=== PATIENT | female | born 1930 | race Caucasian/White ===

== ENCOUNTER 2017-04-17 20:06 | Observation (INO) ==
[2017-04-17 21:04] LABS: Basophils % 0.5 %; Eosinophils # 0.1 K/mcL (0.0-0.6); Eosinophils % 1.4 %; Hemoglobin 13.1 g/dL (11.5-15.4); Lymphocytes % 22.6 %; Mean Corpuscular HGB Conc 32.8 g/dL (31.6-35.5); Mean Corpuscular Hemoglobin 31.3 pg (28.0-33.3); Mean Corpuscular Volume 95.7 fL (83.0-100.0); Mean Platelet Volume 10.7 fL (9.4-12.4); Monocytes # 0.4 K/mcL (0.0-1.3); Monocytes % 9.9 %; Neutrophils # 2.8 K/mcL (1.6-8.9); Platelet Count 173 K/mcL (140-400); Red Blood Count 4.18 M/mcL (3.82-4.97); Red Cell Distribution Width 13.8 % (11.5-14.5); Segmented Neutrophils % 65.6 %
[2017-04-17 21:07] LABS: INR 1.5; Prothrombin Time 15.9 Seconds (9.4-12.1)
[2017-04-17 21:19] LABS: Alanine Aminotransferase 11 Units/L (0-55); Albumin 3.8 g/dL (3.5-5.0); Albumin/Globulin Ratio 1.2 (1.1-2.2); Alkaline Phosphatase 82 Units/L (38-126); Aspartate Amino Transferase 19 Units/L (5-34); BUN/Creatinine Ratio 17 (6-26); Bilirubin,Total 0.5 mg/dL (0.2-1.2); Blood Urea Nitrogen 17 mg/dL (7-20); Calcium 9.5 mg/dL (8.6-10.8); Carbon Dioxide 27 mEq/L (19-29); Chloride 109 mEq/L (98-109); Globulin 3.1 g/dL (2.4-3.5); Glucose 93 mg/dL (70-99); Osmolality,Calculated 299 (280-300); Potassium 4.1 mEq/L (3.5-4.5); Sodium 144 mEq/L (136-145); Total Protein 6.9 g/dL (6.0-8.3); eGFR For African Americans > 60 (> 60); eGFR For Non-African Americans 52 (> 60)
--- NOTE | 2017-04-17 21:25 | Emergency Department Note ---
Disposition Clinical Impression: Subconjunctival hemorrhage of right eye, Elevated systolic blood pressure reading with diagnosis of hypertension Disposition: Admitted As Inpatient Condition: Fair Time of Disposition: 00:43 General Adult HPI - General Chief complaint: ED Dizziness Stated complaint: dizziness, sent by Dr. Padilla concern for aneurysm Time Seen by Provider: 04/17/17 20:33 Source: patient Mode of arrival: ambulatory Limitations: no limitations Nursing Notes Reviewed: Yes Vital Signs Reviewed: Yes - History of Present Illness HPI Narrative: Mrs. Butts, 86-year-old female, presents from her title attorney, Dr. Padilla, with concern of possible aneurysm. Patient had some conjunctival hemorrhage onset 1 week ago and persistent. At 08:30 this morning, patient had an episode of vertigo described as the room spinning. Onset when she bent forward at the waist. Duration of appx 5 minutes, resolved with rest, and has not recurred. PMH: HTN, HLD, A. Fib - on Eliquis, hx TIA. PSH: 4 vessel CABG. Rt cataract replacement. ROS: POS: right scleral redness, vertigo, right eye pain NEG: Headache, nausea, vomiting, confusion, chest pains, palpitations, back pains, any unilateral changes to sensation or strength. Pain Scale: 5 - Related Data Home Medications Medication Instructions Recorded Confirmed Apixaban [Eliquis] 5 mg PO BID 01/28/16 04/18/17 Cholecalciferol (Vitamin D3) 5,000 unit PO QAM 01/28/16 04/18/17 [Vitamin D3] Furosemide [Lasix] 40 mg PO BID PRN 01/28/16 04/18/17 Magnesium Gluconate 27.5 mg PO BID 01/28/16 04/18/17 Metoprolol [Lopressor] 25 mg PO BID 01/28/16 04/18/17 Ranitidine HCl [Zantac] 300 mg PO QAM 01/28/16 04/18/17 Sertraline [Zoloft] 50 mg PO QPM 01/28/16 04/18/17 Simvastatin [Zocor] 10 mg PO QPM 01/28/16 04/18/17 Vitamin B Complex 1 each PO BID 01/28/16 04/18/17 OxyCODONE/APAP 5/325 [Percocet 1 each PO Q6HR PRN 04/18/17 04/18/17 5/325] Allergies Allergy/AdvReac Type Severity Reaction Status Date / Time adhesive Allergy Rash Verified 09/08/16 13:22 codeine Allergy Difficulty Verified 04/08/16 21:51 Breathing IVP DYE AdvReac Hives Uncoded 07/05/15 23:27 All systems ED: reviewed and negative except as stated. Past Medical History - Past Medical History Medical history: Reports: atrial fibrillation, coronary artery disease, hypertension Surgical history: Reports: appendectomy, cholecystectomy, coronary bypass (CABG) , hysterectomy Psychiatric history: Reports: no psych history - Social History Smoking Status: Never smoker Smokeless Tobacco Status: No Alcohol use: Reports: none Drug use: Reports: none Physical Exam Vital Signs Reviewed General: Patient is alert, oriented, and in no acute distress. HEENT: No facial asymmetry. Head is normocephalic and atraumatic. EOMI. cyst- like lesion visible at appx 8-10 o'clock to right pupil. Right-sided subcutaneous conjunctival hemorrhage. Oral mucosa moist. Cardiovascular: Heart regular rate and rhythm without clicks, rubs, gallops, or murmurs. No JVD. PMI nondisplaced. Respiratory: Symmetric chest rise with good respiratory effort. Bilateral breath sounds are clear without wheezing, crackles, or rhonchi. Abdomen: Bowel sounds present normoactive x-4 quadrants. Abdomen is soft, nondistended, and nontender. No organomegaly noted. Musculoskeletal: Muscle strength 5/5 and symmetric bilaterally in upper extremities. Neuro: Cranial nerves II through XII without deficit. Sensation light touch intact. Psych: Patient's affect is appropriate for situation. *Unable to perform pupillary relaxing reaction to light or visual acuity secondary to pupillary dilation from her earlier ophthalmology appointment. - General Limitations: no limitations General appearance: alert, in no apparent distress Course Course Narrative: I spoke with her title attorney, Dr. Padilla. He is concerned as the patient has a pulsatile cyst at 9o'clock to her right pupil along with the subconjunctival hemorrhage and near syncope this morning. His intent is to rule out larger neurologic causes prior to his continued workup. After dilation , on his slit lamp exam, he did not visualize a neoplasm in the eye and no no retinal hemorrhages. Fracture dilation, her pupils were equally round and reactive to light. She does have a history of cataract removal right eye and has an existing cataract in the left. He has spoken with an ocular oncologist with [facility], Dr. Dhiraj Rizzo, regarding the unusual finding the pulsatile cyst. His plan is to have patient follow up with Dr. Restrepo this coming week for evaluation of the cyst. CT head without contrast shows no acute abnormalities. Cannot perform CT angiogram head and neck as patient is allergic to IV contrast. Additionally, cannot perform MRI with contrast for same reason. Discussed this with the hospitalist and he agrees to admission for MRA with contrast using the IV contrast allergy protocol defined by radiology. Throughout her stay, patient has remained asymptomatic and comfortable. She is neurologically intact. As such, no clinical indication for stat MRI with contrast. Will admit patient and perform MRI on inpatient basis. Vital Signs Temperature 98.1 F 04/17/17 20:09 Pulse Rate 95 04/17/17 20:09 Respiratory Rate 18 04/17/17 20:09 Blood Pressure 176/104 04/17/17 20:09 O2 Sat by Pulse Oximetry 98 04/17/17 20:09 Temperature 98.0 F 04/18/17 00:23 Pulse Rate 84 04/18/17 00:23 Respiratory Rate 16 04/18/17 00:23 Blood Pressure 151/86 04/18/17 00:23 O2 Sat by Pulse Oximetry 98 04/18/17 00:23 Oxygen Delivery Oxygen Delivery Room Air Medical Decision Making - Medical Records Medical records reviewed: Yes I reviewed the patient's medical records. - Lab Data Lab results reviewed: Yes I reviewed the patient's lab results. Result diagrams: 04/17/17 20:54 04/17/17 20:54 Lab Results 04/17/17 04/17/17 04/17/17 Range/Units 20:54 20:54 20:54 WBC 4.3 (4.3-11.1) K/mcL RBC 4.18 (3.82-4.97) M/mcL Hgb 13.1 (11.5-15.4) g/dL Hct 40.0 (35.3-44.9) % MCV 95.7 (83.0-100.0) fL MCH 31.3 (28.0-33.3) pg MCHC 32.8 (31.6-35.5) g/dL RDW 13.8 (11.5-14.5) % Plt Count 173 (140-400) K/mcL MPV 10.7 (9.4-12.4) fL Immature Gran % 0.0 (0-4) % Seg Neutrophils % 65.6 % Lymphocytes % 22.6 % Monocytes % 9.9 % Eosinophils % 1.4 % Basophils % 0.5 % Neutrophils # 2.8 (1.6-8.9) K/mcL Lymphocytes # 1.0 (0.6-4.6) K/mcL Monocytes # 0.4 (0.0-1.3) K/mcL Eosinophils # 0.1 (0.0-0.6) K/mcL Basophils # 0.0 (0.0-0.2) K/mcL PT 15.9 H (9.4-12.1) Seconds INR 1.5 Sodium 144 (136-145) mEq/L Potassium 4.1 (3.5-4.5) mEq/L Chloride 109 (98-109) mEq/L Carbon Dioxide 27 (19-29) mEq/L BUN 17 (7-20) mg/dL Creatinine 1.02 (0.57-1.11) mg/dL Est GFR ( Amer) > 60 (> 60) Est GFR (Non-Af Amer) 52 L (> 60) BUN/Creatinine Ratio 17 (6-26) Glucose 93 (70-99) mg/dL Calculated Osmolality 299 (280-300) Calcium 9.5 (8.6-10.8) mg/dL Total Bilirubin 0.5 (0.2-1.2) mg/dL AST 19 (5-34) Units/L ALT 11 (0-55) Units/L Alkaline Phosphatase 82 (38-126) Units/L Serum Total Protein 6.9 (6.0-8.3) g/dL Albumin 3.8 (3.5-5.0) g/dL Globulin 3.1 (2.4-3.5) g/dL Albumin/Globulin Ratio 1.2 (1.1-2.2) - Radiology Data Radiology results reviewed: Yes I reviewed the patient's radiology results. Head CT 04/17/17 20:47 IMPRESSION: No acute intracranial abnormality. D/ / Remington Flores MD / Remington Flores MD Interpreting Provider: Remignton Flores MD - EKG Data EKG #1 EKG attestation: Yes I reviewed and interpreted this EKG. EKG results narrative: EKG dated 17 April 2017 at 21:42 interpreted as atrial fibrillation with rate of 90. Normal axis. Non-specific STT changes. Compared to previous dated 4015 also showing A. fib. No acute ischemic changes comparison. Attestation Statement - Attestation Attestation: I personally interviewed and examined this patient and my medical decision- making was reviewed with the ED Resident Physician, Dr. Marrero I agree with the documented findings, disposition and treatment plan as described except to the extent set forth below. Patient is a 86-year-old white female who presents to the emergency parents today sent by her title attorney with concerns for an abnormal exam of her right eye. Patient was at home at 9 AM this morning and after bending over and developed an acute onset of right eye pain, blurred vision, acute intense vertigo with the room spinning type sensation and nausea. Symptoms lasted for 45 minutes to an hour and then spontaneously resolved. Patient was concerned with the eye pain and blurred vision and so she scheduled an appointment with her title attorney. Patient was sent to the ED from her title attorney office with concerns for an abnormal finding on her eye exam that he was concerned represented a possible aneurysm. We contacted him by phone and he explained that he saw what looked like a small pulsatile cyst on her intraocular exam that concerned him for possible aneurysm. He should arrives asymptomatic with no vertigo, no focal neurologic deficits, no visual changes and no eye pain currently. I agree with the patient's physical exam findings. Patient's symptoms were concerning for possible cerebellar TIA like symptoms versus an acute intraocular issue. We did obtain baseline labs, EKG chest x- ray as well as a noncontrast head CT to start. Patient's noncontrast was unremarkable. Due to allergy to IV contrast dye we held off on CTA of the head and neck and felt MRI would be her best imaging test. Patient remained asymptomatic with a stable neurologic exam over time. At this time we discussed the case with the hospitalist who accepted the patient for admission and further evaluation and management of symptoms.
[2017-04-18] MEDS ORDERED: Naloxone 0.4 MG/ML INJ IVP PRN (01:15)
[2017-04-18] MEDS ORDERED: Acetaminophen 325 MG TABLET PO PRN (01:15)
[2017-04-18] MEDS ORDERED: Ondansetron 4 MG/2 ML VIAL IVP PRN (01:15)
[2017-04-18] MEDS ORDERED: *HR* OxyCODONE/APAP 5/325 TABLET PO PRN (01:33)
--- NOTE | 2017-04-18 01:41 | Internal Med History&Physical ---
Date of Encounter: 04/18/17 Time of Encounter: 01:38 Assessment and Plan (1) Subconjunctival hemorrhage of right eye Current visit: Yes Status: Chronic Patient cousins with subconjunctival hemorrhage of the right eye that has been present for 3 weeks and was sent to the emergency room for obtaining a CT scan with contrast to rule out any aneurysm given pulsating lesion seen in the right eye at 9 o'clock position by patient financial services specialist. Patient has been placed under observation. We will obtain an MR angiogram without contrast to obviate the need for intravenous contrast and prednisone in this 86-year-old female. If MRI does not reveal the necessary information, patient will need to be premedicated with steroids and Benadryl and received CT angiogram of the head. (2) CAD (coronary artery disease) Current visit: Yes Status: Chronic Stable. Continue home medications. Qualifiers: Coronary Disease-Associated Artery/Lesion type: [place] artery [place] vs. transplanted heart: [place] heart Associated angina: without angina Qualified Code(s): I25.10 - Atherosclerotic heart disease of [place] coronary artery without angina pectoris (3) HTN (hypertension) Current visit: Yes Status: Chronic Controlled. Continue home medications. Qualifiers: Hypertension type: essential hypertension Qualified Code(s): I10 - Essential (primary) hypertension (4) Permanent atrial fibrillation Current visit: Yes Status: Chronic Rate controlled. Continue home medications. Hold anticoagulation due to her subconjunctival hemorrhage. Internal Medicine - H&P: HPI Chief complaint: Right eye redness Admitted From: Emergency Dept Plans for Post Hospital Care: Home History of present illness: Ms. Butts is a 86 year old female with a history of coronary artery disease status post CABG who presented to the emergency department after she was sent here by her patient financial services specialist. Patient states that she was clearing her trash this morning when she bent down and started experiencing sudden onset vertigo that lasted for 4-5 minutes. The vertigo resolved spontaneously. It was not associated with nausea, vomiting, palpitations or feeling lightheaded. The patient does report occasional intermittent palpitations. She denies any chest pain, shortness of breath, abdominal pain, diarrhea or consultation. She states that 3 weeks ago, she noticed redness in the right eye. She states that this has been happening on and off over the past year and has happened 6 times so far. She states that it initially started resolving over the next couple of days but then worsened again. Hence, the patient went to see her of the [place] today. The patient financial services specialist noted that there was a pulsating mass in the 9 o'clock position of the right eye. Hence, the patient was sent to the emergency department to get a CT scan with contrast to be evaluated for possible aneurysm. However, the patient has allergy to iodine but the patient does not remove but exact allergy. The patient is also confused whether she is allergic to iodine contrast or if she is allergic to MRI contrast. Hence, she has been placed to the hospital to be premedicated for CT scan with contrast. The patient states that she underwent left heart catheter in 2008 at which time she did receive in contrast but she is not sure if she had a reaction at the time. The patient reports chronic leg swelling. She denies any recent weight changes or changes in her appetite. She denies any headaches. She denies any recent changes in her vision. Past Med Surg Social Fam HX - Past Medical History Attestation: Yes The following information was validated with the patient. Source: patient Medical history: atrial fibrillation, coronary artery disease, hypertension Psychiatric history: no psych history - Past Surgical History Surgical History: appendectomy, cholecystectomy, coronary bypass (CABG), hysterectomy - Social History Smoking Status: Never smoker Smokeless Tobacco Status: No Alcohol use: none Drug use: none Current living situation: Home, With Family Activity Level: Independent ambulation Recent Out of Country Travel Within the Last 8 Weeks: No Exposure or Possible Exposure to Illness During Travel: No - Family History Father Family Member Ethnicity: Non- Living Status: Hx Family Cardiac Disorders: Yes (heart disease) Internal Medicine - H&P: Meds Apixaban [Eliquis] 5 mg PO BID 01/28/16 [History] Cholecalciferol (Vitamin D3) [Vitamin D3] 5,000 unit PO QAM 01/28/16 [History] Furosemide [Lasix] 40 mg PO BID PRN 01/28/16 [History] Magnesium Gluconate 27.5 mg PO BID 01/28/16 [History] Metoprolol [Lopressor] 25 mg PO BID 01/28/16 [History] Ranitidine HCl [Zantac] 300 mg PO QAM 01/28/16 [History] Sertraline [Zoloft] 50 mg PO QPM 01/28/16 [History] Simvastatin [Zocor] 10 mg PO QPM 01/28/16 [History] Vitamin B Complex 1 each PO BID 01/28/16 [History] OxyCODONE/APAP 5/325 [Percocet 5/325] 1 each PO Q6HR PRN 04/18/17 [History] Allergies adhesive Allergy (Verified 09/08/16 13:22) Rash codeine Allergy (Verified 04/08/16 21:51) Difficulty Breathing IVP DYE Adverse Reaction (Uncoded 07/05/15 23:27) Hives All Systems PM: A 10-system review of systems was performed and is negative for pertinent findings except as documented above in the HPI. Review of systems: 10 systems have been reviewed and are negative except as mentioned in the history of present illness - Constitutional Vitals: Temp Pulse Resp BP Pulse Ox 98.0 F 84 16 151/86 98 04/18/17 00:23 04/18/17 00:23 04/18/17 00:23 04/18/17 00:23 04/18/17 00:23 Exam: Gen.: Lying in bed. No acute distress. Eyes: Pupils equal, round and reactive to light. Extraocular muscles intact. Subconjunctival hemorrhage on the medial and lateral aspect of the pupil on the right eye. ENT: Moist mucous membranes. No oropharyngeal erythema or discharge. Chest: Clear to auscultation bilaterally. No adventitious sounds present. CVS: First and second heart sounds present. No murmurs, rubs or gallops. Irregular rhythm but rate controlled. Abdomen: Soft, nontender, nondistended. Bowel sounds present. No hepatosplenomegaly. Skin: No decubitus ulcers appreciated. COURT INTERPRETER: No focal neuro deficits present. Psychiatric: Alert, awake and oriented to time, place and person. Lymphatic system: No lymphadenopathy appreciated Internal Med - H&P Results - Labs CBC & Chem 7: 04/17/17 20:54 04/17/17 20:54 - EKG Data -: EKG Interpreted by Myself (Atrial fibrillation that is rate controlled. Nonspecific ST-T wave changes) - EKG Data Prior EKG available for review: yes When compared to previous EKG: there is no significant change - Diagnostic Studies CT scan - head Status: image reviewed by me (No acute intracranial abnormality demonstrated)
--- NOTE | 2017-04-18 08:48 | Event Note ---
<Dena Oh - Last Filed: 04/18/17 08:37> Date of Encounter: 04/18/17 Time of Encounter: 08:37 86 y F feels well this morning, without loss of vision, headache, chest pain, dyspnea unilateral numbness/tingling awaiting MRangiogram without contrast and possible further imaging today <Allen Gonzalez - Last Filed: 04/18/17 18:23> Date of Encounter: 04/18/17 Ms. Butts was admitted early this morning for evaluation for possible aneurysm. MRI/MRA done -? subclavian stenosis. Appreciate vascular input. I spoke with Dr. Padilla. He was concerned with her episodes of unsteadiness. Monitor on tele tonight.
--- NOTE | 2017-04-18 09:56 | Discharge Summary ---
<Dena Oh - Last Filed: 04/19/17 09:36> Date of Encounter: 04/19/17 Time of Encounter: 07:21 - Discharge Diagnosis (1) Elevated systolic blood pressure reading with diagnosis of hypertension Status: Acute (2) CAD (coronary artery disease) Status: Chronic Qualifiers: Coronary Disease-Associated Artery/Lesion type: [place] artery [place] vs. transplanted heart: [place] heart Associated angina: without angina Qualified Code(s): I25.10 - Atherosclerotic heart disease of [place] coronary artery without angina pectoris (3) HTN (hypertension) Status: Chronic Qualifiers: Hypertension type: essential hypertension Qualified Code(s): I10 - Essential (primary) hypertension (4) Subconjunctival hemorrhage of right eye Status: Chronic (5) Dyslipidemia Status: Acute - Discharge Medications Prescriptions: RX: Metoprolol [Lopressor] 37.5 mg PO BID #60 tablet Home Medications: RX: Apixaban [Eliquis] 5 mg PO BID 01/28/16 [History] RX: Cholecalciferol (Vitamin D3) [Vitamin D3] 5,000 unit PO QAM 01/28/16 [ History] RX: Furosemide [Lasix] 40 mg PO BID PRN 01/28/16 [History] RX: Magnesium Gluconate 27.5 mg PO BID 01/28/16 [History] RX: Ranitidine HCl [Zantac] 300 mg PO QAM 01/28/16 [History] RX: Sertraline [Zoloft] 50 mg PO QPM 01/28/16 [History] RX: Simvastatin [Zocor] 40 mg PO QPM 01/28/16 [History] RX: Vitamin B Complex 1 each PO BID 01/28/16 [History] RX: Metoprolol [Lopressor] 37.5 mg PO BID #60 tablet 04/19/17 [Rx] Allergies/Adverse Reactions: Allergies adhesive Allergy (Verified 09/08/16 13:22) Rash codeine Allergy (Verified 04/08/16 21:51) Difficulty Breathing IVP DYE Adverse Reaction (Uncoded 07/05/15 23:27) Hives Procedures/tests Complete & Pending: Procedures Performed prior 72 hours Category Date Time Status MR angio head wo con [MR] Routine MRI 04/18/17 01:34 Ordered MR angio neck wo/w con [MR] Routine MRI 04/17/17 23:39 Ordered MR head/brain wo/w con [MR] Routine MRI 04/17/17 23:39 Ordered Date of admission: 04/17/17 23:27 Primary care physician: Brandon Sauceda MD Consults: Dr. Kulkarni Discharging clinician: Dena Oh Anticipated date of discharge: 04/19/17 - Patient Status Disposition: Home, Self-Care Condition: Fair Functional capacity at discharge: uses cane/walker Overall status at discharge: patient is progressing back to baseline - Discharge Instructions Follow Up With: Brandon Sauceda MD [Primary Care Provider] - Forms: ED Satisfaction Letter Additional Instructions: follow up with ophthalmology specialist in [place] in 24-48hours after discharge - Diet and Activity Activity: increase activity as tolerated Diet: advance to your usual diet Interval History: 86 yo F presented with posterior right eye pulsating vessel seen on eye exam. Pt admitted with subconjunctival hemorrhage. Head CT without evidence of acute intracranial hemorrhage. Pt states allergy to contrast, cannot recall if it is CT or MR contrast. Vascular surgery consulted and head MRA, neck MRA and brain MRI completed. No evidence of aneurysm seen in imaging. 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 Some global parechymal volume loss with chronic microvascular changes seen. No evidence of aneurysm appreciated on imaging. Patient stable, scheduled for evaluation of corneal hemorrhage with specialist in [place] this week as out patient. Hospital course: Ms. Butts is a 86 year old female - Time Spent with Patient Total time spent providing and/or coordinating discharge services: - Constitutional Vitals: Temp Pulse Resp BP Pulse Ox 97.9 F 68 16 144/59 97 04/18/17 07:05 04/18/17 07:05 04/18/17 07:05 04/18/17 07:05 04/18/17 07:05 General appearance: Present: A&O X 3, pleasant, no acute distress, answers questions appropriately - Head Head exam: Present: atraumatic, normocephalic - Eye Eye exam: Present: EOMI, PERRL, conjuntiva pink, sclera anicteric Additional comments: right eye with subconjuctival hemorrhage - Neck Neck exam general surgery: Present: supple, trachea midline. Absent: lymphadenopathy - Respiratory Respiratory exam: Present: CTAB. Absent: accessory muscle use, rales, rhonchi, wheezes - Cardiovascular Cardiovascular exam: Present: irregular rhythm, +S1, +S2 - GI/Abdominal GI/Abdominal exam: Present: normal bowel sounds, soft, no peritoneal signs. Absent: distended, tenderness - Extremities Exam Extremities exam: Present: warm, radial pulses palpable and symetrical. Absent : calf tenderness, cyanotic, pedal edema - Neurological Exam Neurological exam: Present: CN II-XII intact, oriented X3, no focal deficits. Absent: pronater drift, facial droop, speech deficit - Skin Skin exam: Present: dry, intact <Allen Gonzalez - Last Filed: 04/19/17 15:39> Date of Encounter: 04/19/17 - Discharge Diagnosis (1) Permanent atrial fibrillation Priority: Primary Status: Chronic (2) Vertigo Priority: Secondary Status: Chronic (3) Subconjunctival hemorrhage of right eye Priority: Secondary Status: Chronic (4) CAD (coronary artery disease) Priority: Secondary Status: Chronic Qualifiers: Coronary Disease-Associated Artery/Lesion type: [place] artery [place] vs. transplanted heart: [place] heart Associated angina: without angina Qualified Code(s): I25.10 - Atherosclerotic heart disease of [place] coronary artery without angina pectoris (5) HTN (hypertension) Priority: Secondary Status: Chronic Qualifiers: Hypertension type: essential hypertension Qualified Code(s): I10 - Essential (primary) hypertension (6) Dyslipidemia Priority: Secondary Status: Chronic Procedures/tests Complete & Pending: Procedures Performed prior 72 hours Category Date Time Status MR angio head wo con [MR] Routine MRI 04/18/17 01:34 Completed MR angio neck wo/w con [MR] Routine MRI 04/17/17 23:39 Completed MR head/brain wo/w con [MR] Routine MRI 04/17/17 23:39 Completed Date of admission: 04/17/17 23:27 Primary care physician: Brandon Sauceda MD Hospital course: Ms. Butts is a 86 year old female - Time Spent with Patient Total time spent providing and/or coordinating discharge services: 32min - Constitutional Vitals: Temp Pulse Resp BP Pulse Ox 97.5 F L 97 16 152/101 98 04/19/17 07:27 04/19/17 07:27 04/19/17 07:27 04/19/17 07:27 04/19/17 07:27 - Attending Attestation I examined this patient and my medical decision-making was reviewed with the Resident Physician on 04/19/17. I agree with the documented findings, disposition and treatment plan as described except to the extent set forth below. Ms. Butts had no issues overnight. No telemetry issues. Feels good today. BP slightly high. Heart rate controlled. No fever. Exam Alert. Comfortable Heart irreg - rate controlled Lungs clear Plan D/C today. Hydraulic Hammer Operator to call with appt with specialist for eye. Follow up with PCP.
[2017-04-18] MEDS: Vitamin B Complex/Vit C/Vit E 1 EACH TABLET PO SCH ×2 (13:41→20:12)
[2017-04-18] MEDS: Cholecalciferol (D-3) 1,000 UNIT TABLET PO SCH (13:41)
[2017-04-18] MEDS: Famotidine 20 MG TABLET PO SCH (13:41)
--- NOTE | 2017-04-18 16:06 | Vascular/Endovasc Consult Note ---
Date of Encounter: 04/18/17 Time of Encounter: 16:00 Assessment and Plan (1) Dizziness Status: Acute The patient was admitted with a sunconjunctival hemorrhage. MRI/MRA revealed no aneurysm. However, she was found to have a possible right subclavian artery stenosis. Due to her prior dizziness, concern for subclavian steal arose. Clinical exam reveals a strong, palpable right radial pulse. The patient has no clinical evidence of subclavian stenosis. The findings on MRA of the neck appear may be secondary to motion artifact. No further evaluation or intervention is indicated at this time. She may follow-up with vascular surgery as needed. (2) CAD (coronary artery disease) Status: Chronic Qualifiers: Coronary Disease-Associated Artery/Lesion type: [place] artery [place] vs. transplanted heart: [place] heart Associated angina: without angina Qualified Code(s): I25.10 - Atherosclerotic heart disease of [place] coronary artery without angina pectoris (3) Dyslipidemia Status: Chronic She was counseled regarding atherosclerotic risk factor reduction. (4) HTN (hypertension) Status: Chronic Qualifiers: Hypertension type: essential hypertension Qualified Code(s): I10 - Essential (primary) hypertension (5) Permanent atrial fibrillation Status: Chronic Continue with eliquis. - History of Present Illness Consult date: 04/21/17 Requesting physician: Allen Gonzalez Consult reason: Subclavian artery stenosis Chief complaint: subconjunctival hemorrhage History of present illness: Ms. Butts is a 86 year old female with multiple medical comorbidities including hypertension, hyperlipidemia and coronary artery disease. She was admitted to [facility] witha subconjunctiva hemorrhage and possible intracranial aneurysm. The patietn underwent an MRI/MRA and was noted to have a possible subclavian artery stenosis. The patient had a history of dizziness and vasculr surgery was consulted for further evaluation. At the time of evaluation, the patient is alert and comfortable. She denies any recent history of CVA, TIA or amaurosis fugax. She denies any symptoms of syncope. She denies chest pain or shortness of breath. Past Med Surg Social Fam HX - Past Medical History Medical history: atrial fibrillation, coronary artery disease, hypertension Psychiatric history: no psych history - Past Surgical History Surgical History: appendectomy, cholecystectomy, coronary bypass (CABG), hysterectomy - Social History Smoking Status: Never smoker Smokeless Tobacco Status: No Alcohol use: none Drug use: none - Family History Father Family Member Ethnicity: Non- Living Status: Hx Family Cardiac Disorders: Yes (heart disease) Medications and Allergies Apixaban [Eliquis] 5 mg PO BID 01/28/16 [History] Cholecalciferol (Vitamin D3) [Vitamin D3] 5,000 unit PO QAM 01/28/16 [History] Furosemide [Lasix] 40 mg PO BID PRN 01/28/16 [History] Magnesium Gluconate 27.5 mg PO BID 01/28/16 [History] Ranitidine HCl [Zantac] 300 mg PO QAM 01/28/16 [History] Sertraline [Zoloft] 50 mg PO QPM 01/28/16 [History] Simvastatin [Zocor] 40 mg PO QPM 01/28/16 [History] Vitamin B Complex 1 each PO BID 01/28/16 [History] Metoprolol [Lopressor] 37.5 mg PO BID #60 tablet 04/19/17 [Rx] Allergies adhesive Allergy (Verified 09/08/16 13:22) Rash codeine Allergy (Verified 04/08/16 21:51) Difficulty Breathing IVP DYE Adverse Reaction (Uncoded 07/05/15 23:27) Hives All Systems Review: A 10-system review of systems was performed and is negative for pertinent findings except as documented above in the HPI. - Constitutional Constitutional: no chills, no fever(s) - Cardiovascular Cardiovascular: no chest pain at rest, no chest pain with exertion, no dyspnea at rest, no dyspnea on exertion - Neurological Neurological: no focal weakness, no syncope Exam Vital Signs, Last 4 Hours Temp Pulse Resp BP Pulse Ox 04/18/17 15:10 97.5 F L 99 16 148/73 97 General: Present: Conversant, No Apparent Distress HEENT: Present: Atraumatic, Normocephaly, Trachea midline, Pupils equal Neck: Absent: JVD, Lymphadenopathy, Left Carotid bruit, Right Carotid bruit Cardiac: Present: Normal S1 and S2, Irregular Rhythm Lungs: Present: Normal Breath Sounds, No Wheeze, Rales, Rhonchi Neuro: Present: Alert and responsive, No focal deficits noted, Cranial nerves grossly intact, Motor nerves grossly intact, Sensory nerves grossly intact Abdomen: Present: Soft, Non-tender. Absent: Masses Vascular: Present: Normal capillary refill, Pulse, normal (bilateral radial pulses are 3+). Absent: Clubbing, Cyanosis, Edema Musculoskeletal: Present: No Chest Wall Tenderness Consult Discharge Plan - Plan Additional Instructions: follow up with ophthalmology specialist in [place] in 24-48hours after discharge Referrals: Brandon Sauceda MD [Primary Care Provider] - Prescriptions: Metoprolol [Lopressor] 37.5 mg PO BID #60 tablet
[2017-04-18] MEDS ORDERED: predniSONE 20 MG TABLET PO ONE (16:54)
[2017-04-19 07:32] VITALS: BP 152/101
[2017-04-19] MEDS: Cholecalciferol (D-3) 1,000 UNIT TABLET PO SCH (09:36)
[2017-04-19] MEDS: Famotidine 20 MG TABLET PO SCH (09:36)
[2017-04-19] MEDS: Vitamin B Complex/Vit C/Vit E 1 EACH TABLET PO SCH (09:36)
--- NOTE | 2017-04-20 08:09 | Electrocardiograph Report ---
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
== END 2017-04-19 11:15 | disposition home or self-care (01) ==
LOC: 2NENU 20:06 → EMEROO 20:06 → 2NENU 23:56
PROVIDERS: ADMIT Internal Medicine; ATTEND Internal Medicine

== ENCOUNTER 2018-04-30 15:48 | Inpatient (IN) ==
--- NOTE | 2018-04-30 16:16 | Emergency Department Note ---
Disposition Clinical Impression: Left hip pain Disposition: Home, Self-Care Condition: Good Referrals: Mary Ellen Vela CNP [Primary Care Provider] - Forms: ED Satisfaction Letter Time of Disposition: 20:30 General Adult HPI - General Chief complaint: ED Back Pain/Injury Stated complaint: back pain Time Seen by Provider: 04/30/18 15:56 Source: patient, EMS Mode of arrival: EMS Limitations: no limitations Nursing Notes Reviewed: Yes Vital Signs Reviewed: Yes - History of Present Illness HPI Narrative: 87F with history of chronic atrial fibrillation, quadruple bypass on Eliquis, CAD, hypertension, vertigo, status post total knee replacement (2004, 2007) presents today for left hip pain. Patient was admitted emergency department 3 weeks ago status post fall. X-ray of left hip at the time demonstrated no fracture and patient was discharged with supportive care. Patient reports that left hip pain has continued since the fall. Today at 11:30, patient was going to the kitchen to drink some water and bent over to clean the floor when she experienced sudden sharp left hip pain and left back pain. She was unable to get back up. She had to call her daughter who arrived at her home 90 minutes later to help her. She decided to come to the emergency department due to the worsening hip pain and lower left back pain. She reports that oxycodone at home minimally alleviates hip and lower back pain, but she does not take it often. Current pain is 10 out of 10. Patient denies fall today, denies loss of consciousness, head trauma, confusion, loss of memory, changes in mental status. He denies chest pain, shortness of breath, cough, fever, chills, nausea , vomiting, abdominal pain, dysuria, hematuria, diarrhea, constipation. Does admit to palpitations. Denies any active bleeding. Pt Subjective Complaint: left hip pain Pain Scale: 10 - Related Data Home Medications Medication Instructions Recorded Confirmed Apixaban [Eliquis] 5 mg PO BID 01/28/16 04/30/18 Furosemide [Lasix] 40 mg PO BID PRN 01/28/16 04/30/18 Magnesium Gluconate 27.5 mg PO BID 01/28/16 04/30/18 Ranitidine HCl [Zantac] 300 mg PO QAM 01/28/16 04/30/18 Sertraline [Zoloft] 50 mg PO QPM 01/28/16 04/30/18 Simvastatin [Zocor] 40 mg PO QPM 01/28/16 04/30/18 Vitamin B Complex 1 each PO BID 01/28/16 04/30/18 Cholecalciferol (D-3) [Vitamin D] 5,000 unit PO DAILY 04/30/18 04/30/18 Metoprolol [Lopressor] 12.5 mg PO BID 04/30/18 04/30/18 OxyCODONE/APAP 5/325 [Percocet 1 tab PO Q6HR PRN 04/30/18 04/30/18 5/325 MG] Allergies Allergy/AdvReac Type Severity Reaction Status Date / Time adhesive Allergy Rash Verified 09/12/17 09:29 codeine Allergy Difficulty Verified 09/12/17 09:29 Breathing IVP DYE AdvReac Hives Uncoded 09/12/17 09:29 All systems ED: reviewed and negative except as stated. Review of Systems: As Per HPI Limitations: ROS unobtainable due to patients medical condition Constitutional: Reports: as per HPI Eyes: Denies: vision change Cardiovascular: Reports: as per HPI Respiratory: Reports: as per HPI Gastrointestinal: Reports: as per HPI Genitourinary: Reports: as per HPI Musculoskeletal: Reports: as per HPI Integumentary: Reports: as per HPI Neurological: Reports: as per HPI Endocrine: Reports: as per HPI Hematological/Lymphatic: Reports: as per HPI Allergic/Immunologic: Reports: as per HPI Past Medical History - Past Medical History Source: patient Medical history: Reports: atrial fibrillation, coronary artery disease, hypertension, renal disease Surgical history: Reports: appendectomy, cholecystectomy, coronary bypass (CABG) , hysterectomy Psychiatric history: Reports: no psych history - Social History Smoking Status: Never smoker Smokeless Tobacco Status: No Alcohol use: Reports: none Drug use: Reports: none Physical Exam - General Limitations: no limitations General appearance: alert, in no apparent distress - Head Head exam: atraumatic, normocephalic, normal inspection - Eye Eye exam: Present: normal appearance, PERRL, EOMI - Expanded Eye Exam Pupils: Left: reactive - ENT ENT exam: normal exam, normal oropharynx, mucous membranes moist - Expanded ENT Exam External ear exam: Present: normal external inspection Mouth exam: Present: normal external inspection Teeth exam: Present: normal inspection Throat exam: Present: normal inspection - Neck Neck exam: Present: normal inspection, full ROM, trachea midline - Chest Chest inspection: Present: normal inspection, symmetric chest wall rise - Respiratory Respiratory exam: Present: normal lung sounds bilaterally - Cardiovascular Cardiovascular exam: Present: regular rate, normal rhythm, normal heart sounds - Abdominal Exam Abdominal exam: Present: soft, Non-Tender. Absent: tenderness, distention, guarding, rebound, rigidity - Extremities Exam Extremities exam: Present: normal inspection, full ROM. Absent: tenderness, pedal edema - Expanded Upper Extremity Exam Shoulder exam: Present: normal inspection, full ROM Arm exam: Present: normal inspection, full ROM Elbow exam: Present: normal inspection, full ROM Forearm/Wrist exam: Present: normal inspection, full ROM Hand exam: Present: normal inspection, full ROM Vascular exam: Normal: capillary refill, radial pulse - Expanded Lower Extremity Exam Hip/Pelvis exam: Present: normal inspection, tenderness (Left hip tenderness with right knee flexion) Upper leg exam: Present: normal inspection, full ROM Knee exam: Present: normal inspection, full ROM Lower leg exam: Present: normal inspection, full ROM Ankle exam: Present: normal inspection, full ROM Foot/toe exam: Present: normal inspection, full ROM Neurovascular/Tendon exam: Absent: motor deficit, sensory deficit, tendon deficit - Back Exam Back exam: Present: normal inspection, full ROM. Absent: tenderness - Neurological Exam Neurological exam: Present: alert, oriented X3 - Expanded Neurological Exam Patient oriented to: Present: person, place, time Coma Scale Eye Opening: Spontaneous Coma Scale Motor Response: Obeys Commands Coma Scale Verbal Response: Oriented Coma Scale Total: 15 - Psychiatric Psychiatric exam: Present: normal affect, normal mood - Skin Skin exam: Present: warm, dry, intact, normal color Course Course Narrative: EKG demonstrates A. fib with RVR. Patient follows with Dr. Kirkpatrick but has not seen her in about a year. She takes Metoprolol at home and has been compliant, but did not take medication this morning. Will update medication list and restart her meds. CT hip demonstrates no acute fracture, signs of osteoarthritis. XR lumbar with moderate scoliosis and multilevel degenerative disc disease/ spondylosis. No acute fracture. - Reevaluation(s) Reevaluation #1: I suspect uncontrolled atrial fibrillation could be reason for her falls. Patient is advised to follow-up with Dr. Kirkpatrick. Trial of her home medication for control of RVR. Time: 19:30 Reevaluation #2: Patient continues to have severe left hip pain despite 5mg oxycodone. Unable to tolerate minimal position changes. Will admit for intractable pain. Consulted Dr. Lazcano, hospitalist, who has accepted. Time: 20:45 Vital Signs Temperature 97.8 F 04/30/18 15:56 Pulse Rate 122 04/30/18 15:56 Respiratory Rate 20 04/30/18 15:56 Blood Pressure 123/88 04/30/18 15:56 O2 Sat by Pulse Oximetry 94 04/30/18 15:56 Temperature 97.8 F 04/30/18 15:56 Pulse Rate 122 04/30/18 15:56 Respiratory Rate 20 04/30/18 15:56 Blood Pressure 123/88 04/30/18 15:56 O2 Sat by Pulse Oximetry 94 04/30/18 15:56 Oxygen Delivery Oxygen Delivery Room Air Medical Decision Making - Medical Records Medical records reviewed: Yes I reviewed the patient's medical records. - Lab Data Lab results reviewed: Yes I reviewed the patient's lab results. Result diagrams: 04/30/18 17:12 Lab Results 04/30/18 Range/Units 17:12 WBC 6.1 (4.3-11.1) K/mcL RBC 4.06 (3.82-4.97) M/mcL Hgb 12.9 (11.5-15.4) g/dL Hct 38.9 (35.3-44.9) % MCV 95.8 (83.0-100.0) fL MCH 31.8 (28.0-33.3) pg MCHC 33.2 (31.6-35.5) g/dL RDW 14.0 (11.5-14.5) % Plt Count 163 (140-400) K/mcL MPV 10.6 (9.4-12.4) fL Immature Gran % 0.3 (0-4) % Seg Neutrophils % 74.0 % Lymphocytes % 14.5 % Monocytes % 10.4 % Eosinophils % 0.5 % Basophils % 0.3 % Neutrophils # 4.5 (1.6-8.9) K/mcL Lymphocytes # 0.9 (0.6-4.6) K/mcL Monocytes # 0.6 (0.0-1.3) K/mcL Eosinophils # 0.0 (0.0-0.6) K/mcL Basophils # 0.0 (0.0-0.2) K/mcL - Radiology Data Radiology results reviewed: Yes I reviewed the patient's radiology results. - EKG Data EKG #1 EKG attestation: Yes I reviewed and interpreted this EKG. EKG results narrative: Ventricle 127, QRS 75, patient in atrial fibrillation with RVR. Attestation Statement - Attestation Attestation: I, Joel Mcdaniels DO, examined this patient [id number] and my medical decision-making was reviewed with Farhat Conley PGY-1, Resident Physician. I agree with the documented findings, disposition and treatment plan as described except to the extent set forth below. Please see my progress notes for details.
--- NOTE | 2018-04-30 17:20 | Emergency Department Note ---
Disposition Clinical Impression: Back pain, Afib Disposition: Admitted As Inpatient Condition: Fair Referrals: Mary Ellen Vela, DEBURRER [Primary Care Provider] - Forms: ED Satisfaction Letter Time of Disposition: 20:33 General Adult HPI - General Chief complaint: ED Back Pain/Injury Stated complaint: back pain Time Seen by Provider: 04/30/18 15:56 Source: EMS Limitations: no limitations - History of Present Illness Pain Scale: 10 - Related Data Home Medications Medication Instructions Recorded Confirmed Apixaban [Eliquis] 5 mg PO BID 01/28/16 04/18/17 Furosemide [Lasix] 40 mg PO BID PRN 01/28/16 04/18/17 Magnesium Gluconate 27.5 mg PO BID 01/28/16 04/18/17 Ranitidine HCl [Zantac] 300 mg PO QAM 01/28/16 04/18/17 Sertraline [Zoloft] 50 mg PO QPM 01/28/16 04/18/17 Simvastatin [Zocor] 40 mg PO QPM 01/28/16 04/18/17 Vitamin B Complex 1 each PO BID 01/28/16 04/18/17 Cholecalciferol (D-3) [Vitamin D] 5,000 unit PO DAILY 04/30/18 04/30/18 Metoprolol [Lopressor] 12.5 mg PO BID 04/30/18 04/30/18 OxyCODONE/APAP 5/325 [Percocet 1 tab PO Q6HR PRN 04/30/18 04/30/18 5/325 MG] Allergies Allergy/AdvReac Type Severity Reaction Status Date / Time adhesive Allergy Rash Verified 09/12/17 09:29 codeine Allergy Difficulty Verified 09/12/17 09:29 Breathing IVP DYE AdvReac Hives Uncoded 09/12/17 09:29 Past Medical History - Past Medical History Medical history: Reports: atrial fibrillation, coronary artery disease, hypertension, renal disease Surgical history: Reports: appendectomy, cholecystectomy, coronary bypass (CABG) , hysterectomy Psychiatric history: Reports: no psych history - Social History Smoking Status: Never smoker Smokeless Tobacco Status: No Alcohol use: Reports: none Drug use: Reports: none Physical Exam - General Limitations: no limitations General appearance: alert, in no apparent distress Course Vital Signs Temperature 97.8 F 04/30/18 15:56 Pulse Rate 122 04/30/18 15:56 Respiratory Rate 20 04/30/18 15:56 Blood Pressure 123/88 04/30/18 15:56 O2 Sat by Pulse Oximetry 94 04/30/18 15:56 Temperature 97.8 F 04/30/18 15:56 Pulse Rate 107 04/30/18 19:17 Respiratory Rate 20 04/30/18 19:17 Blood Pressure 142/90 04/30/18 19:17 O2 Sat by Pulse Oximetry 96 04/30/18 19:17 Oxygen Delivery Oxygen Delivery Room Air Medical Decision Making - Lab Data Result diagrams: 04/30/18 17:12 04/30/18 17:14 Lab Results 04/30/18 04/30/18 04/30/18 Range/Units 17:12 17:14 17:47 WBC 6.1 (4.3-11.1) K/mcL RBC 4.06 (3.82-4.97) M/mcL Hgb 12.9 (11.5-15.4) g/dL Hct 38.9 (35.3-44.9) % MCV 95.8 (83.0-100.0) fL MCH 31.8 (28.0-33.3) pg MCHC 33.2 (31.6-35.5) g/dL RDW 14.0 (11.5-14.5) % Plt Count 163 (140-400) K/mcL MPV 10.6 (9.4-12.4) fL Immature Gran % 0.3 (0-4) % Seg Neutrophils % 74.0 % Lymphocytes % 14.5 % Monocytes % 10.4 % Eosinophils % 0.5 % Basophils % 0.3 % Neutrophils # 4.5 (1.6-8.9) K/mcL Lymphocytes # 0.9 (0.6-4.6) K/mcL Monocytes # 0.6 (0.0-1.3) K/mcL Eosinophils # 0.0 (0.0-0.6) K/mcL Basophils # 0.0 (0.0-0.2) K/mcL Sodium 139 (136-145) mEq/L Potassium 4.0 (3.5-5.1) mEq/L Chloride 109 H (98-107) mEq/L Carbon Dioxide 21 L (23-29) mEq/L BUN 16 (8-23) mg/dL Creatinine 0.99 (0.60-1.20) mg/dL Est GFR ( Amer) > 60 (> 60) Est GFR (Non-Af Amer) 53 L (> 60) BUN/Creatinine Ratio 16 (6-26) Glucose 103 (70-105) mg/dL Calculated Osmolality 289 (280-300) Calcium 9.1 (8.6-10.3) mg/dL Troponin I < 0.03 (< 0.04) ng/mL Urine Color Yellow (Yellow) Urine Clarity Cloudy A (Clear) Urine pH 7.5 (5.0-8.0) pH Units Ur Specific [place] 1.016 (1.010-1.025) Urine Protein Negative (Neg-Trace) mg/dL Urine Glucose (UA) Normal (Normal) mg/dL Urine Ketones Negative (Negative) mg/dL Urine Blood Negative (Negative) Urine Nitrite Negative (Negative) Urine Bilirubin Negative (Negative) Urine Urobilinogen Normal (Normal) mg/dL Ur Leukocyte Esterase Negative (Negative) Urine Microscopic RBC 5-15 H (0-3) per hpf Urine Microscopic WBC 0-3 (0-3) per hpf Ur Squamous Epith Cells Many H (None-Few) per lpf Urine Bacteria None Seen (None-Few) per hpf Hyaline Casts None Seen (None-Few) per lpf Ur Culture Indicated? NO (NO) Attestation Statement - Attestation Attestation: I, Joel Mcdaniels DO, examined this patient [id number] and my medical decision-making was reviewed with Farhat Conley PGY-1, Resident Physician. I agree with the documented findings, disposition and treatment plan as described except to the extent set forth below. Please see my progress notes for details. 87-year-old female presents by EMS for evaluation of back pain. Patient had symptoms started yesterday and persistently worse when she went to bed. This point patient felt that she could not get out of bed. She attempted left presents of severe pain that she just lays in bed until this afternoon. She then attempted to walk to the kitchen and the pain associated she called the family completed. Patient was transported by EMS outside facility for further evaluation. Patient did fall almost 1 month ago. She had no traumatic injuries that time x-rays are negative. Patient has had persistent pain since then and then over the last 24 hours the symptoms got progressively worse. She denies any recent illnesses, fevers, chills, chest pain shortness of breath headache vision changes nausea vomiting or diarrhea. Denies any abdominal pain or other issues. She does not have a history of dissection or aneurysm. She does have chronic A. fib and is currently on Eliquis at home. Patient denies any rashes or lesions. Lungs are clear heart is irregular and tachycardic intermittently. She did not take her home medications this morning which could be the reason for evaluated heart rate. Patient's lungs are clear abdomen is soft nontender nondistended no guarding no rigidity no peritoneal symptoms. She does not have any numbness or tingling in the lower extremity. She does have dependent edema in lower extremities but no signs of pitting edema or signs of respiratory distress. Vital signs are reviewed and otherwise unremarkable except for the heart rate. Symptom control will be completed and CT imaging of the lumbar and pelvis will be completed looking for fractures of the pelvic girdle as well as the hips and lumbar spine. Patient otherwise denies any other complaints or issues. Repeat evaluation of the posterior aspect of the back will be completed once patient is resting comfortably. On arrival here she denies any complaints or issues except for pain in her back when she moves. Disposition to be determined once full workup and treatment course are established. See detailed documentation of the physical exam, medical intervention, medical decision-making and disposition in the resident physician's note. No critical care pad the patient's treatment course at this time [address] of the lumbar spine and pelvis are unremarkable. Repeat evaluation with evaluation of the posterior aspect of the back shows paraspinal musculature tenderness and left-sided lumbar spine radiating into the left sciatic notch. There is no tenderness along with pain with palpation of the inguinal canal. Patient has no physical exam findings are consistent with sciatica but she does have reproducible pain over the posterior lumbar aspect spine. Patient will be provided with pain medication here. Continuation laboratory workup including CBC chemistry and urinalysis will be resulted. Patient started at the bedside and is very happy with the treatment course asthma established but she was concerned the patient is unable to bear weight or walk as well as she typically does about her going home. Disposition will be determined once pain is controlled. Her heart rate has fluctuated in the 120s which she did not take her home dose metoprolol. 12.5 mg of metoprolol be given by mouth and reevaluation of the heart failure. Disposition pending treatment course 2014 Patient is unable to get herself up out of bed to walk. She has pain still in her lower back and vision she tries to move. Single dose of Cardizem will be given over a controlled admission process will be completed for symptomatic treatment and reevaluation. Patient otherwise is denying any other symptoms or complaints at this time. Hospitalist Dr. salgado reviewed the patient's case and has no other concerns or issues this time. Patient will be admitted for definitive management
[2018-04-30 17:33] LABS: Basophils % 0.3 %; Eosinophils % 0.5 %; Hematocrit 38.9 % (35.3-44.9); Hemoglobin 12.9 g/dL (11.5-15.4); Immature Granulocytes % 0.3 % (0-4); Lymphocytes # 0.9 K/mcL (0.6-4.6); Lymphocytes % 14.5 %; Mean Corpuscular HGB Conc 33.2 g/dL (31.6-35.5); Mean Corpuscular Hemoglobin 31.8 pg (28.0-33.3); Mean Corpuscular Volume 95.8 fL (83.0-100.0); Mean Platelet Volume 10.6 fL (9.4-12.4); Monocytes # 0.6 K/mcL (0.0-1.3); Monocytes % 10.4 %; Neutrophils # 4.5 K/mcL (1.6-8.9); Platelet Count 163 K/mcL (140-400); Red Blood Count 4.06 M/mcL (3.82-4.97)
[2018-04-30 17:50] LABS: BUN/Creatinine Ratio 16 (6-26); Blood Urea Nitrogen 16 mg/dL (8-23); Calcium 9.1 mg/dL (8.6-10.3); Carbon Dioxide 21 mEq/L (23-29); Chloride 109 mEq/L (98-107); Glucose 103 mg/dL (70-105); Osmolality,Calculated 289 (280-300); Sodium 139 mEq/L (136-145); eGFR For African Americans > 60 (> 60); eGFR For Non-African Americans 53 (> 60)
[2018-04-30 17:51] LABS: Troponin I < 0.03 ng/mL (< 0.04)
[2018-04-30 18:00] LABS: Bilirubin,Urine Negative (Negative); Blood,Urine Negative (Negative); Clarity,Urine Cloudy (Clear); Color,Urine Yellow (Yellow); Glucose,Urine (UA) Normal (Normal); Ketones,Urine Negative (Negative); Leukocyte Esterase,Urine Negative (Negative); Nitrite,Urine Negative (Negative); PH,Urine 7.5 pH Units (5.0-8.0); Protein,Urine Negative (Neg-Trace); Specific Gravity,Urine 1.016 (1.010-1.025); Urobilinogen,Urine Normal (Normal)
[2018-04-30 18:02] LABS: Bacteria,Urine None Seen per hpf (None-Few); Hyaline Casts,Urine None Seen per lpf (None-Few); Squamous Epithelial Cell,Urine Many per lpf (None-Few); WBC,Urine 0-3 per hpf (0-3)
[2018-04-30] MEDS ORDERED: *HR* OxyCODONE/APAP 5/325 TABLET PO ONE (18:37)
[2018-04-30] MEDS ORDERED: Naloxone 0.4 MG/ML INJ IVP PRN (21:45)
[2018-04-30] MEDS ORDERED: 0.9 % Sodium Chloride 1,000 ML ONE (21:49)
[2018-04-30] MEDS: 0.9 % Sodium Chloride 1,000 ML IVC SCH (21:51)
--- NOTE | 2018-04-30 22:04 | Internal Med History&Physical ---
Date of Encounter: 04/30/18 Time of Encounter: 21:00 Internal Medicine - H&P: HPI Chief complaint: Left hip pain, falls at home Admitted From: Home Plans for Post Hospital Care: Home History of present illness: Ms. Butts is a 87 year old female Patient was in the ER 3 weeks ago status post fall. Workup at that time was negative, however she continues to have left hip pain since that time. She spent the last 2 days mostly in bed and tried to get out of bed yesterday and went to the kitchen. She attempted to bend over and white something off the floor when she had increased hip pain and lower back pain and she could not stand back up. She made it back to her bed and laid back down. Today she notified her daughter who came to the house to help and she still could not get out of bed and thus EMS was called and she was taken back to the emergency room. 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 Lumbar CT showed moderate scoliosis with multilevel degenerative disc disease but no acute fractures. She has a history of atrial fibrillation, coronary artery disease, hypertension and lower extremity swelling. In the ER she was noted to have atrial fibrillation with RVR though she did not take her regular medicines before coming in, as she could not get. She denies loss of consciousness, altered mental status, chest pain, abdominal pain, fever, chills, diarrhea, constipation , nausea, and vomiting. Patient does not have dysuria or any signs of bleeding. She will be admitted for pain management, physical and occupational therapy consultation. Past Med Surg Social Fam HX - Past Medical History Medical history: atrial fibrillation, coronary artery disease, hypertension, renal disease Additional medical history: Patient's daughter states she had a "mini stroke" over the summer Psychiatric history: no psych history - Past Surgical History Surgical History: appendectomy, cholecystectomy, coronary bypass (CABG), hysterectomy Additional surgical history: back surgery - Social History Smoking Status: Never smoker Smokeless Tobacco Status: No Alcohol use: none Drug use: none - Family History Father Family Member Ethnicity: Non- Living Status: Hx Family Cardiac Disorders: Yes (heart disease) Internal Medicine - H&P: Meds Apixaban [Eliquis] 5 mg PO BID 01/28/16 [History] Furosemide [Lasix] 40 mg PO BID PRN 01/28/16 [History] Magnesium Gluconate 27.5 mg PO BID 01/28/16 [History] Ranitidine HCl [Zantac] 300 mg PO QAM 01/28/16 [History] Sertraline [Zoloft] 50 mg PO QPM 01/28/16 [History] Simvastatin [Zocor] 40 mg PO QPM 01/28/16 [History] Vitamin B Complex 1 each PO BID 01/28/16 [History] Cholecalciferol (D-3) [Vitamin D] 5,000 unit PO DAILY 04/30/18 [History] Metoprolol [Lopressor] 12.5 mg PO BID 04/30/18 [History] OxyCODONE/APAP 5/325 [Percocet 5/325 MG] 1 tab PO Q6HR PRN 04/30/18 [History] 3 Allergy/AdvReac Type Severity Reaction Status Date / Time adhesive Allergy Rash Verified 09/12/17 09:29 codeine Allergy Difficulty Verified 09/12/17 09:29 Breathing IVP DYE AdvReac Hives Uncoded 09/12/17 09:29 All Systems PM: A 10-system review of systems was performed and is negative for pertinent findings except as documented above in the HPI. - Constitutional Vitals: Temp Pulse Resp BP Pulse Ox 97.8 F 87 15 97/63 93 04/30/18 15:56 04/30/18 21:29 04/30/18 21:48 04/30/18 21:48 04/30/18 21:29 General appearance: Present: mild distress, A&O X 3, pleasant - Head Head exam: Present: normal inspection - Eye Eye exam: Present: EOMI, normal appearance - Neck Neck exam general surgery: Present: full ROM. Absent: tenderness - Respiratory Respiratory exam: Present: CTAB. Absent: decreased breath sounds, rales, respiratory distress, wheezes - Cardiovascular Cardiovascular exam: Present: irregular rhythm. Absent: diastolic murmur, systolic murmur - GI/Abdominal GI/Abdominal exam: Present: normal bowel sounds. Absent: firm, guarding, tenderness - Extremities Exam Extremities exam: Present: warm, radial pulses palpable and symmetrical. Absent : tenderness Additional comments: Patient's left hip has pain with palpation and with movement. Pain mostly felt palpation of the left inguinal area, less so over the greater trochanter. Right hip within normal limits though difficult to examine due to pain in the left. Tibial pulses felt bilaterally - Back Exam Back exam: Absent: CVA tenderness (L), CVA tenderness (R) - Neurological Exam Neurological exam: Present: oriented X3, strengths equal and symetr throughout. Absent: motor sensory deficit, facial droop, speech deficit - Skin Skin exam: Present: dry, warm. Absent: erythema, rash Internal Med - H&P Results - Labs CBC & Chem 7: 04/30/18 17:12 04/30/18 17:14 - Assessment and plan (1) Left hip pain Current Visit: Yes Status: Acute Assessment and plan: Patient has had left hip pain since a fall about 3 or so weeks ago. Initial evaluation at that time did not show any acute fractures. Today's exam also did not show fractures. In the ER patient's pain improved after application oxycodone. She has a prescription for this at home but tries not to use it very much. She would have taken her home medication if she was able to get to it, but due to her hip pain she was unable to. We will have physical therapy and occupational therapy see the patient this weekend, follow-up recommendations. Patient may benefit from extended care facility so we will order social work consult as well. Patient lives at home alone. Continue Percocet 5 mg to 10 mg every 6 hours as needed for pain. PT consultation OT consultation Social work consultation (2) Falls Current Visit: Yes Status: Acute Assessment and plan: Initially caused her current left hip pain. Could be related to medications, as patient takes blood pressure medications, as well as lasix at home. Patient does not appear to be anemic on lab work. Hydration could be an issue in hot weather, though BUN and creatinine are wnl. UA also not indicating infection. 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 Check orthostatic blood pressures. PT consultation OT consultation Qualifiers: Qualified Code(s): W19.XXXD - Unspecified fall, subsequent encounter (3) Afib Current Visit: Yes Status: Acute Assessment and plan: Patient has a history of atrial fibrillation and takes metoprolol 12.5 mg by mouth twice a day. In the emergency room she had a heart rate in the 120s though she did not take her home medications morning prior to coming to the emergency room. After a dose of Cardizem her rate has now returned to normal. Continue to monitor on telemetry Continue home medication for rate control. Qualifiers: Atrial fibrillation type: chronic Qualified Code(s): I48.2 - Chronic atrial fibrillation (4) HTN (hypertension) Current Visit: No Status: Chronic Assessment and plan: Chronic, continue home meds. Continue to monitor with vitals Q shift. Qualifiers: Hypertension type: essential hypertension Qualified Code(s): I10 - Essential (primary) hypertension (5) Dyslipidemia Current Visit: No Status: Chronic Assessment and plan: Chronic, continue home meds. (6) CAD (coronary artery disease) Current Visit: No Status: Chronic Assessment and plan: Status post cardiac bypass surgery. Continue home medication eliquis. Qualifiers: Coronary Disease-Associated Artery/Lesion type: [place] artery [place] vs. transplanted heart: [place] heart Associated angina: without angina Qualified Code(s): I25.10 - Atherosclerotic heart disease of [place] coronary artery without angina pectoris (7) DVT prophylaxis Current Visit: No Status: Acute Assessment and plan: Continue patient's eliquis. - Time Spent With Patient Total time spent is greater than 50% in coordination of care (as documented) at patient's floor/unit and/or counseling patient: Greater than 35 minutes
[2018-04-30] MEDS: Furosemide 40 MG TABLET PO SCH (22:53)
[2018-04-30] MEDS: *HR* OxyCODONE Immed Rel 5 MG TABLET PO PRN (22:53)
[2018-05-01 04:52] LABS: Hemoglobin 11.6 g/dL (11.5-15.4); Mean Corpuscular HGB Conc 32.2 g/dL (31.6-35.5); Mean Corpuscular Hemoglobin 31.3 pg (28.0-33.3); Platelet Count 159 K/mcL (140-400); Red Blood Count 3.71 M/mcL (3.82-4.97); Red Cell Distribution Width 14.1 % (11.5-14.5)
[2018-05-01 05:02] LABS: BUN/Creatinine Ratio 20 (6-26); Blood Urea Nitrogen 18 mg/dL (8-23); Calcium 8.5 mg/dL (8.6-10.3); Carbon Dioxide 22 mEq/L (23-29); Chloride 113 mEq/L (98-107); Glucose 98 mg/dL (70-105); Osmolality,Calculated 298 (280-300); Sodium 143 mEq/L (136-145); eGFR For African Americans > 60 (> 60); eGFR For Non-African Americans 58 (> 60)
[2018-05-01] MEDS: Cholecalciferol (D-3) 1,000 UNIT TABLET PO SCH (08:44)
[2018-05-01] MEDS: Famotidine 20 MG TABLET PO SCH (08:44)
[2018-05-01] MEDS: Vitamin B Complex/Vit C/Vit E 1 EACH TABLET PO SCH ×2 (08:44→20:43)
[2018-05-01] MEDS: MAGNESIUM GLUCONATE 27.5 MG PO SCH ×2 (08:45→20:43)
[2018-05-01] MEDS: Furosemide 40 MG TABLET PO SCH ×2 (08:45→15:48)
[2018-05-01] MEDS: Apixaban 5 MG TABLET PO SCH ×2 (08:45→20:42)
[2018-05-01] MEDS: 0.9 % Sodium Chloride 1,000 ML IVC SCH (08:45)
[2018-05-01] MEDS ORDERED: Ibuprofen 400 MG TABLET PO PRN (10:09)
--- NOTE | 2018-05-01 10:11 | Internal Med Progress Note ---
Date of Encounter: 05/01/18 Time of Encounter: 10:11 - Assessment and plan (1) Afib Current Visit: Yes Status: Acute Assessment and plan: 1 history of atrial fibrillation takes metoprolol 12.5 twice a day continue with metoprolol as well as Eliquis presently rate controlled Qualifiers: Atrial fibrillation type: chronic Qualified Code(s): I48.2 - Chronic atrial fibrillation (2) Falls Current Visit: Yes Status: Acute Assessment and plan: Patient has had episodes of falls states she has been experiencing back and hip pain and difficulty ambulating. Patient will be evaluated by PT OT awaiting recommendations Qualifiers: Encounter type: initial encounter Qualified Code(s): W19.XXXA - Unspecified fall, initial encounter (3) Left hip pain Current Visit: Yes Status: Acute Assessment and plan: CT of pelvis shows mild to moderate osteoarthritis of the head no acute fracture we will continue with pain management oxycodone ibuprofen and lidocaine patch (4) DVT prophylaxis Current Visit: No Status: Acute Assessment and plan: Patient is on Ellik was (5) CAD (coronary artery disease) Current Visit: No Status: Chronic Qualifiers: Coronary Disease-Associated Artery/Lesion type: [place] artery [place] vs. transplanted heart: [place] heart Associated angina: without angina Qualified Code(s): I25.10 - Atherosclerotic heart disease of [place] coronary artery without angina pectoris (6) Dyslipidemia Current Visit: No Status: Chronic (7) HTN (hypertension) Current Visit: No Status: Chronic Qualifiers: Hypertension type: essential hypertension Qualified Code(s): I10 - Essential (primary) hypertension - Time Spent With Patient Total time spent is greater than 50% in coordination of care (as documented) at patient's floor/unit and/or counseling patient: - Subjective Interval history: Patient seen and examined at bedside, presently complains of hip pain relating for PT OT recommendations - Constitutional Vitals: Temp Pulse Resp BP Pulse Ox 97.7 F 78 17 136/81 97 05/01/18 07:39 05/01/18 07:39 05/01/18 07:39 05/01/18 07:39 05/01/18 07:39 General appearance: Present: mild distress, A&O X 3, pleasant - Head Head exam: Present: atraumatic, normocephalic - Eye Eye exam: Present: PERRL, conjuntiva pink, sclera anicteric Pupils: Present: PERRL - Neck Neck exam general surgery: Present: supple, trachea midline. Absent: lymphadenopathy - Respiratory Respiratory exam: Present: CTAB. Absent: accessory muscle use, rales, rhonchi, wheezes - Cardiovascular Cardiovascular exam: Present: RRR, +S1, +S2. Absent: diastolic murmur, gallop, rubs, systolic murmur - GI/Abdominal GI/Abdominal exam: Present: normal bowel sounds, soft, no peritoneal signs. Absent: distended, tenderness - Extremities Exam Extremities exam: Present: warm, radial pulses palpable and symmetrical. Absent : calf tenderness, cyanotic, pedal edema - Neurological Exam Neurological exam: Present: CN II-XII intact, oriented X3, no focal deficits. Absent: pronater drift, facial droop, speech deficit - Skin Skin exam: Present: dry, intact Internal Medicine: Result - Labs CBC & Chem 7: 05/01/18 03:40 05/01/18 03:40 Labs: Short CBC 05/01/18 Range/Units 03:40 WBC 5.7 (4.3-11.1) K/mcL Hgb 11.6 (11.5-15.4) g/dL Hct 36.0 (35.3-44.9) % Plt Count 159 (140-400) K/mcL [facility] 05/01/18 03:40 Sodium 143 Potassium 4.0 Chloride 113 H Carbon Dioxide 22 L BUN 18 Creatinine 0.92 Glucose 98 Calcium 8.5 L Consult Discharge Plan - Plan Referrals: Mary Ellen Vela, DIAGNOSTIC TECHNOLOGIST [Primary Care Provider] -
[2018-05-02] MEDS: *HR* OxyCODONE Immed Rel 5 MG TABLET PO PRN ×2 (03:23→18:09)
[2018-05-02] MEDS: MAGNESIUM GLUCONATE 27.5 MG PO SCH ×2 (08:30→20:15)
[2018-05-02] MEDS: Vitamin B Complex/Vit C/Vit E 1 EACH TABLET PO SCH ×2 (08:30→20:15)
[2018-05-02] MEDS: Cholecalciferol (D-3) 1,000 UNIT TABLET PO SCH (08:30)
[2018-05-02] MEDS: Furosemide 40 MG TABLET PO SCH (08:30)
[2018-05-02] MEDS: Famotidine 20 MG TABLET PO SCH (08:30)
[2018-05-02] MEDS: Apixaban 5 MG TABLET PO SCH ×2 (08:31→20:15)
[2018-05-02] MEDS ORDERED: Ketorolac 15 MG/ML VIAL IVP ONE (08:47)
--- NOTE | 2018-05-02 08:49 | Internal Med Progress Note ---
Date of Encounter: 05/02/18 Time of Encounter: 08:49 - Assessment and plan (1) Afib Current Visit: Yes Status: Acute Assessment and plan: 1 rate is controlled at this time history of atrial fibrillation continue metoprolol 12.5 twice a day as well as Eliquis Qualifiers: Atrial fibrillation type: chronic Qualified Code(s): I48.2 - Chronic atrial fibrillation (2) Falls Current Visit: Yes Status: Acute Assessment and plan: Patient has had episodes of falls states she has been experiencing back and hip pain and difficulty ambulating. Patient will be evaluated by PT OT awaiting recommendations Qualifiers: Encounter type: initial encounter Qualified Code(s): W19.XXXA - Unspecified fall, initial encounter (3) Left hip pain Current Visit: Yes Status: Acute Assessment and plan: CT of pelvis shows mild to moderate osteoarthritis of the head no acute fracture we will continue with pain management oxycodone lidocaine patch NSAID (4) DVT prophylaxis Current Visit: No Status: Acute Assessment and plan: Patient is on Ellquis (5) CAD (coronary artery disease) Current Visit: No Status: Chronic Assessment and plan: Continue with beta niko and statin nitroglycerin as needed for chest pain Qualifiers: Coronary Disease-Associated Artery/Lesion type: [place] artery [place] vs. transplanted heart: [place] heart Associated angina: without angina Qualified Code(s): I25.10 - Atherosclerotic heart disease of [place] coronary artery without angina pectoris (6) Dyslipidemia Current Visit: No Status: Chronic Assessment and plan: Continuous statin (7) HTN (hypertension) Current Visit: No Status: Chronic Assessment and plan: Currently controlled continue with home medications Qualifiers: Hypertension type: essential hypertension Qualified Code(s): I10 - Essential (primary) hypertension - Time Spent With Patient Total time spent is greater than 50% in coordination of care (as documented) at patient's floor/unit and/or counseling patient: - Subjective Interval history: Patient seen and examined at bedside, presently complains of hip/shoulder pain- states that lidocaine patch did help some will attempt to use an NSAID to help alleviate her pain. She is waiting placement to [facility]CF-she prefers [facility] - Constitutional Vitals: Temp Pulse Resp BP Pulse Ox 97.6 F 82 18 100/65 95 05/02/18 07:51 05/02/18 07:51 05/02/18 07:51 05/02/18 07:51 05/02/18 07:51 General appearance: Present: mild distress, A&O X 3, pleasant - Head Head exam: Present: atraumatic, normocephalic - Eye Eye exam: Present: PERRL, conjuntiva pink, sclera anicteric Pupils: Present: PERRL - Neck Neck exam general surgery: Present: supple, trachea midline. Absent: lymphadenopathy - Respiratory Respiratory exam: Present: CTAB. Absent: accessory muscle use, rales, rhonchi, wheezes - Cardiovascular Cardiovascular exam: Present: RRR, +S1, +S2. Absent: diastolic murmur, gallop, rubs, systolic murmur - GI/Abdominal GI/Abdominal exam: Present: normal bowel sounds, soft, no peritoneal signs. Absent: distended, tenderness - Extremities Exam Extremities exam: Present: warm, radial pulses palpable and symmetrical. Absent : calf tenderness, cyanotic, pedal edema - Neurological Exam Neurological exam: Present: CN II-XII intact, oriented X3, no focal deficits. Absent: pronater drift, facial droop, speech deficit - Skin Skin exam: Present: dry, intact Internal Medicine: Result - Labs CBC & Chem 7: 05/02/18 08:53 05/02/18 08:53 Consult Discharge Plan - Plan Referrals: Mary Ellen Vela, CITY PLANNING TEACHER [Primary Care Provider] -
[2018-05-02 09:19] LABS: Basophils % 0.2 %; Eosinophils # 0.1 K/mcL (0.0-0.6); Eosinophils % 1.2 %; Hematocrit 41.2 % (35.3-44.9); Immature Granulocytes % 0.1 % (0-4); Lymphocytes # 1.2 K/mcL (0.6-4.6); Lymphocytes % 14.3 %; Mean Corpuscular HGB Conc 33.3 g/dL (31.6-35.5); Mean Corpuscular Hemoglobin 31.4 pg (28.0-33.3); Mean Corpuscular Volume 94.5 fL (83.0-100.0); Mean Platelet Volume 10.3 fL (9.4-12.4); Monocytes # 0.8 K/mcL (0.0-1.3); Monocytes % 9.8 %; Neutrophils # 6.2 K/mcL (1.6-8.9); Platelet Count 189 K/mcL (140-400); Red Blood Count 4.36 M/mcL (3.82-4.97); Red Cell Distribution Width 13.9 % (11.5-14.5); Segmented Neutrophils % 74.4 %
[2018-05-02 09:21] LABS: Hemoglobin 13.7 g/dL (11.5-15.4)
[2018-05-02 09:39] LABS: BUN/Creatinine Ratio 20 (6-26); Blood Urea Nitrogen 20 mg/dL (8-23); Calcium 9.3 mg/dL (8.6-10.3); Carbon Dioxide 27 mEq/L (23-29); Chloride 104 mEq/L (98-107); Glucose 109 mg/dL (70-105); Osmolality,Calculated 291 (280-300); Potassium 3.4 mEq/L (3.5-5.1); Sodium 139 mEq/L (136-145); eGFR For African Americans > 60 (> 60); eGFR For Non-African Americans 52 (> 60)
[2018-05-02] MEDS ORDERED: 0.9 % Sodium Chloride 500 ML IVC ONE (12:50)
[2018-05-03] MEDS: Cholecalciferol (D-3) 1,000 UNIT TABLET PO SCH (09:01)
[2018-05-03] MEDS: Apixaban 5 MG TABLET PO SCH ×2 (09:01→21:09)
[2018-05-03] MEDS: Famotidine 20 MG TABLET PO SCH (09:01)
[2018-05-03] MEDS: Vitamin B Complex/Vit C/Vit E 1 EACH TABLET PO SCH ×2 (09:01→21:08)
[2018-05-03] MEDS: MAGNESIUM GLUCONATE 27.5 MG PO SCH ×2 (09:02→21:09)
[2018-05-03] MEDS: *HR* OxyCODONE Immed Rel 5 MG TABLET PO PRN (09:07)
[2018-05-03 09:20] LABS: Calcium 8.8 mg/dL (8.6-10.3); Potassium 3.5 mEq/L (3.5-5.1)
[2018-05-03] MEDS: Ibuprofen 600 MG TABLET PO SCH ×3 (10:28→21:09)
--- NOTE | 2018-05-03 10:33 | Internal Med Progress Note ---
Date of Encounter: 05/03/18 Time of Encounter: 10:32 - Assessment and plan (1) Afib Current Visit: Yes Status: Acute Assessment and plan: 1 rate is controlled at this time history of atrial fibrillation continue metoprolol 12.5 twice a day as well as Eliquis continue to monitor Qualifiers: Atrial fibrillation type: chronic Qualified Code(s): I48.2 - Chronic atrial fibrillation (2) Falls Current Visit: Yes Status: Acute Assessment and plan: Patient has had episodes of falls states she has been experiencing back and hip pain and difficulty ambulating. Patient evaluated by PT OT recommending [facility] placement-awaiting acceptance [facility] Qualifiers: Encounter type: initial encounter Qualified Code(s): W19.XXXA - Unspecified fall, initial encounter (3) Left hip pain Current Visit: Yes Status: Acute Assessment and plan: CT of pelvis shows mild to moderate osteoarthritis of the head no acute fracture we will continue with pain management oxycodone lidocaine patch NSAID (4) CAD (coronary artery disease) Current Visit: No Status: Chronic Assessment and plan: Continue with beta niko and statin nitroglycerin as needed for chest pain Qualifiers: Coronary Disease-Associated Artery/Lesion type: [place] artery [place] vs. transplanted heart: [place] heart Associated angina: without angina Qualified Code(s): I25.10 - Atherosclerotic heart disease of [place] coronary artery without angina pectoris (5) Dyslipidemia Current Visit: No Status: Chronic Assessment and plan: Continuous statin (6) HTN (hypertension) Current Visit: No Status: Chronic Assessment and plan: Currently controlled continue with home medications Qualifiers: Hypertension type: essential hypertension Qualified Code(s): I10 - Essential (primary) hypertension (7) DVT prophylaxis Current Visit: No Status: Acute Assessment and plan: Patient is on Ellquis - Time Spent With Patient Total time spent is greater than 50% in coordination of care (as documented) at patient's floor/unit and/or counseling patient: - Subjective Interval history: Patient seen and examined at bedside, continues to complain of pain. Awaiting placement to ECF at this time we will continue with NSAIDs lidocaine patch and oxycodone. Review treatment plan with the patient who verbalized understanding. - Constitutional Vitals: Temp Pulse Resp BP Pulse Ox 98.1 F 77 15 120/71 96 05/03/18 06:50 05/03/18 06:50 05/03/18 06:50 05/03/18 06:50 05/03/18 06:50 General appearance: Present: mild distress, A&O X 3, pleasant - Head Head exam: Present: atraumatic, normocephalic - Eye Eye exam: Present: PERRL, conjuntiva pink, sclera anicteric Pupils: Present: PERRL - Neck Neck exam general surgery: Present: supple, trachea midline. Absent: lymphadenopathy - Respiratory Respiratory exam: Present: CTAB. Absent: accessory muscle use, rales, rhonchi, wheezes - Cardiovascular Cardiovascular exam: Present: RRR, +S1, +S2. Absent: diastolic murmur, gallop, rubs, systolic murmur - GI/Abdominal GI/Abdominal exam: Present: normal bowel sounds, soft, no peritoneal signs. Absent: distended, tenderness - Extremities Exam Extremities exam: Present: warm, radial pulses palpable and symmetrical. Absent : calf tenderness, cyanotic, pedal edema - Neurological Exam Neurological exam: Present: CN II-XII intact, oriented X3, no focal deficits. Absent: pronater drift, facial droop, speech deficit - Skin Skin exam: Present: dry, intact Internal Medicine: Result - Labs CBC & Chem 7: 05/02/18 08:53 05/03/18 08:10 Labs: BMP 05/03/18 08:10 Sodium 140 Potassium 3.5 Chloride 106 BUN 24 H Creatinine 1.14 Glucose 105 Calcium 8.8 Consult Discharge Plan - Plan Referrals: Mary Ellen Vela CNP [Primary Care Provider] - 05/07/18 10:40 am
[2018-05-04 07:09] LABS: Hematocrit 38.8 % (35.3-44.9); Hemoglobin 12.4 g/dL (11.5-15.4); Mean Corpuscular Hemoglobin 31.1 pg (28.0-33.3); Mean Corpuscular Volume 97.2 fL (83.0-100.0); Mean Platelet Volume 11.1 fL (9.4-12.4); Platelet Count 171 K/mcL (140-400); Red Blood Count 3.99 M/mcL (3.82-4.97); Red Cell Distribution Width 13.9 % (11.5-14.5)
[2018-05-04 08:41] LABS: Calcium 9.3 mg/dL (8.6-10.3); Potassium 3.5 mEq/L (3.5-5.1)
[2018-05-04] MEDS: Famotidine 20 MG TABLET PO SCH (09:13)
[2018-05-04] MEDS: Ibuprofen 600 MG TABLET PO SCH (09:14)
[2018-05-04] MEDS: Apixaban 5 MG TABLET PO SCH (09:14)
[2018-05-04] MEDS: Vitamin B Complex/Vit C/Vit E 1 EACH TABLET PO SCH (09:14)
[2018-05-04] MEDS: Cholecalciferol (D-3) 1,000 UNIT TABLET PO SCH (09:14)
[2018-05-04] MEDS: MAGNESIUM GLUCONATE 27.5 MG PO SCH (09:15)
[2018-05-04 10:53] VITALS: BP 96/65
--- NOTE | 2018-05-04 11:02 | Physician Discharge Referral ---
ExtendedCare Referral Info Transfer To: senior care facility Provider in Charge after Transfer: PCP Institutional Level of Care: Skilled Prognosis: Good Aware of Diagnosis: Patient Aware of Prognosis: Patient - Transfer Medications Prescriptions: OxyCODONE/APAP 5/325 [Percocet 5/325 MG] 1 tab PO Q6HR PRN 5 Days #10 tablet PRN Reason: severe Home Medications: Apixaban [Eliquis] 5 mg PO BID 01/28/16 [History] Magnesium Gluconate 27.5 mg PO BID 01/28/16 [History] Ranitidine HCl [Zantac] 300 mg PO QAM 01/28/16 [History] Sertraline [Zoloft] 50 mg PO QPM 01/28/16 [History] Simvastatin [Zocor] 40 mg PO QPM 01/28/16 [History] Vitamin B Complex 1 each PO BID 01/28/16 [History] Cholecalciferol (D-3) [Vitamin D] 5,000 unit PO DAILY 04/30/18 [History] Metoprolol [Lopressor] 12.5 mg PO BID 04/30/18 [History] Lidocaine Patch [Lidoderm 5% patch] 1 each TP DAILY adh..patch 05/04/18 [Rx] OxyCODONE/APAP 5/325 [Percocet 5/325 MG] 1 tab PO Q6HR PRN 5 Days #10 tablet [Rx] Allergies/Adverse Reactions: 3 Allergy/AdvReac Type Severity Reaction Status Date / Time adhesive Allergy Rash Verified 09/12/17 09:29 codeine Allergy Difficulty Verified 09/12/17 09:29 Breathing IVP DYE AdvReac Hives Uncoded 09/12/17 09:29 - Respiratory Orders Smoking Cessation: Smoking cessation has been advised. For more information, call the [place] Tobacco Quit Line at 8-320-EJOQ-NOW. CERTIFICATION: I certify that the transfer of the above named patient to an Extended Care Facility is necessary for the continuing treatment of the diagnosis listed. The above information is true and accurate reflection of patient's current condition. Confidential - Redisclosure prohibited without a patient's written consent.
--- NOTE | 2018-05-04 11:04 | Discharge Summary ---
- NOTES TO OUTPATIENT PROVIDER Notes to Outpatient Provider: Patient is a past medical history of atrial fibrillation on anticoagulation with rate control who presented with back and hip pain and weakness. She was investigated with radiological imaging which did not show any acute fractures. For pain control she was started on lidocaine patch and when necessary oxycodone. She was also limited by physical therapy and deemed to be appropriate for placement in a skilled nursing to work on a graduated Exercising before she gets back to her home. At this point she is stable to discharge and approved for [facility] Date of Encounter: 05/04/18 Time of Encounter: 11:02 - Discharge Diagnosis (1) Left hip pain Priority: Primary Status: Acute (2) HTN (hypertension) Priority: Secondary Status: Chronic Qualifiers: Hypertension type: essential hypertension Qualified Code(s): I10 - Essential (primary) hypertension (3) Dyslipidemia Priority: Secondary Status: Chronic (4) DVT prophylaxis Priority: Secondary Status: Acute (5) CAD (coronary artery disease) Priority: Secondary Status: Chronic Qualifiers: Coronary Disease-Associated Artery/Lesion type: [place] artery [place] vs. transplanted heart: [place] heart Associated angina: without angina Qualified Code(s): I25.10 - Atherosclerotic heart disease of [place] coronary artery without angina pectoris (6) Afib Priority: Secondary Status: Acute Qualifiers: Atrial fibrillation type: chronic Qualified Code(s): I48.2 - Chronic atrial fibrillation (7) Falls Priority: Secondary Status: Acute Qualifiers: Encounter type: initial encounter Qualified Code(s): W19.XXXA - Unspecified fall, initial encounter Hospital course: Ms. Butts is a 87 year old female with a past medical history of atrial fibrillation, rate controlled on Eliquis with left hip pain and weakness as well as falls. The patient was evaluated with radiological imaging and no acute fractures were found. She was also seen by physical therapy and deemed to be appropriate for placement to a senior living facility on a program of exercise for strengthening. Patient was on anticoagulation and will be sent on it. She was treated with NSAIDs while in the hospital however at the time of discharge I have recommended that she be on Tylenol arthritis which she could take every 8 hours for pain. I will also leave the Lidoderm patches which are helping her with the pain. Of note, the patient was on diuretics as an outpatient but this could not be verified with her directly. Hence I have discontinued the dose of Lasix for discharge. I would defer to the primary care physician discretion if Lasix is to be resumed. Discharge discussed with: patient, nurse - Time Spent with Patient Total time spent providing and/or coordinating discharge services: Greater than 30 minutes - Discharge Medications Prescriptions: OxyCODONE/APAP 5/325 [Percocet 5/325 MG] 1 tab PO Q6HR PRN 5 Days #10 tablet PRN Reason: severe Home Medications: Apixaban [Eliquis] 5 mg PO BID 01/28/16 [History] Magnesium Gluconate 27.5 mg PO BID 01/28/16 [History] Ranitidine HCl [Zantac] 300 mg PO QAM 01/28/16 [History] Sertraline [Zoloft] 50 mg PO QPM 01/28/16 [History] Simvastatin [Zocor] 40 mg PO QPM 01/28/16 [History] Vitamin B Complex 1 each PO BID 01/28/16 [History] Cholecalciferol (D-3) [Vitamin D] 5,000 unit PO DAILY 04/30/18 [History] Metoprolol [Lopressor] 12.5 mg PO BID 04/30/18 [History] Lidocaine Patch [Lidoderm 5% patch] 1 each TP DAILY adh..patch 05/04/18 [Rx] OxyCODONE/APAP 5/325 [Percocet 5/325 MG] 1 tab PO Q6HR PRN 5 Days #10 tablet [Rx] Allergies/Adverse Reactions: 3 Allergy/AdvReac Type Severity Reaction Status Date / Time adhesive Allergy Rash Verified 09/12/17 09:29 codeine Allergy Difficulty Verified 09/12/17 09:29 Breathing IVP DYE AdvReac Hives Uncoded 09/12/17 09:29 Date of admission: 04/30/18 21:45 Primary care physician: Mary Ellen Vela CNP Consults: 04/30/18 21:54 Consult to Occupational Therapy [CONS] Routine Comment: Evaluate, develop and implement POC Reason for Consult: Difficulty getting out of bed, and bending over. Falls at home with severe left hip pain. Does patient have active BEDREST order?: No Is patient medically & hemodynamically stable?: Yes Consult to Physical Therapy [CONS] Routine Comment: Evaluate, develop and implement POC Reason for Consult: Falls at home. Difficulty with walking and bending due to left hip pain. Does patient have active BEDREST order?: No Is patient medically & hemodynamically stable?: Yes Consult to Booster Pump Operator [CONS] Routine Reason for SW Consult: Falls at home. May benefit from placement at ECF. - Constitutional Vitals: Temp Pulse Resp BP Pulse Ox 97.3 F L 87 15 96/65 99 05/04/18 10:52 05/04/18 10:52 05/04/18 10:52 05/04/18 10:52 05/04/18 10:52 General appearance: Present: mild distress, A&O X 3, pleasant Exam: GENERAL: Alert, no distress, cooperative EYES: PERRLA, EOMI EARS: External ears normal, canals clear OROPHARYNX: Lips, mucosa, and tongue normal. Teeth and gums normal. Oropharynx normal. NECK: No jugulovenous distention, No carotid bruits, Carotid pulse normal contour, Supple LUNGS: Lungs clear to auscultation, Good diaphragmatic excursion CARDIAC: S1-S2 irregular, no murmurs rubs or gallops ABDOMEN: Abdomen soft, non-tender, BS normal, No masses or organomegaly PULSES: 2+ radial, 2+ carotid Rest of the exam is non contributory - Patient Status Disposition: Transfer SNF Condition: Fair Functional capacity at discharge: uses cane/walker Overall status at discharge: patient is progressing back to baseline - Discharge Instructions Follow Up With: Mary Ellen Vela, HOUSEKEEPING STAFF [Primary Care Provider] - - Diet and Activity Activity: as per physical therapy Diet: advance to your usual diet
--- NOTE | 2018-05-04 16:43 | Electrocardiograph Report ---
[address] [place], [place] [address] Test Date: 2018-04-30 Pat Name: Stefani Butts Department: 104 Room: 3B23 Gender: F Ripening Room Hand: CARL : 1930 Requested By: Farhat Conley Order Number: [id number] Reading MD: Ana Kirkpatrick Measurements Intervals [place] Rate: 127 P: CA: 0 QRS: 19 QRSD: 85 T: -27 QT: 299 QTc: 374 Interpretive Statements ATRIAL FIBRILLATION WITH RAPID VENTRICULAR RESPONSE NONSPECIFIC ST-WAVE ABNORMALITY ABNORMAL RHYTHM ECG Electronically Signed On 05-04-2018 16:42:19 EDT by Ana Kirkpatrick
== END 2018-05-04 14:43 | DRG 556 ==
LOC: 3BNU 15:48 → EMEROO 15:48 → 3BNU 21:50
PROVIDERS: ADMIT Internal Medicine; ATTEND Internal Medicine